=== PATIENT | female | born 2000 | race Caucasian/White ===

== ENCOUNTER 2024-03-06 07:48 | Outpatient (AMB) | payer OTHER, SELFPAY ==
--- NOTE | 2024-03-06 08:01 | MHC.OFFVIS ---
Vital Signs 03/06/24 08:14 Height 5 ft 4 in Weight 162 lb 11.218 oz BMI 27.9 BP 118/72 Blood Pressure Location Rt brachial Position Sitting Pulse 86 Pulse Source Pulse Oximeter Pulse Oximetry (%) 98 Oxygen Delivery Method Room Air Intake Visit Reasons: Gastroesophageal reflux disease (GERD) Intake Note: Navdeep presents in office today for a scheduled initial assessment. CC; Pt reports that they have been having intermittent sx over the course of the last few years. However, they have noticed their sx have become more prevalent over the course of the last 2 years. Pt notices that they do experience worsening sx with certain trigger foods (acidic). Pt reports that she typically has the primary sx of esophageal burning and discomfort, associated with intermittent chest pain. Pt also believes they are lactose intolerant but they have never had the testing to confirm this. 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 Patient is here today to discuss her symptoms that have been going on for 4 years or so. Patient reports that as far she remember on a day of her birthday when she turned 20 she had half of coffee and she 1st noticed burning and severe reflux. Patient states that it felt burning sensation then after almost anything that she eats. Patient states that worse with lactose products like ice cream or cheese. Patient denies any nausea or vomiting, however lately patient reports nausea about 4 hours after her dinner. Denies any vomiting. Patient reports occasional dyspepsia without dysphagia or odynophagia. Patient states that she purchased cyhw-[id number] omeprazole for week or so and patient reports that the help. Her symptoms went away, however currently she is starting to experience same symptoms again. Patient does admit that she has stressful job. 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 Patient reports that she moves her bowels every day. Her bowels are normal and she is feeling like she is emptying completely. Patient denies melena, hematochezia. PCP checked labs. H pylori was negative. [facility] Medical History (Updated 03/06/24 @ 08:13 by SHARIF Cabrales) Congenital blocked tear duct Surgical History (Updated 03/06/24 @ 08:13 by SHARIF Cabrales) [place] teeth removed History of removal of pigmented skin lesion Social History Alcohol intake: current Comment: 1-2 x per month Patient Tobacco Use Status: Never used Tobacco Review of Systems Const Denies weight gain and Denies weight loss ENT Reports no additional complaints, Denies dysphagia and Denies odynophagia Card Reports no additional complaints Resp Reports no additional complaints GI Reports abdominal pain (Epigastric), Denies belching, Denies melena, Reports bloating, Denies change in bowel habits, Denies dysphagia, Denies excessive flatus, Denies dyspepsia, Reports heartburn, Denies diarrhea, Denies loose stools, Reports nausea (Occasional), Denies odynophagia and Denies vomiting Reports no additional complaints Musc Reports no additional complaints Neuro Reports no additional complaints Psych Reports no additional complaints Endo Reports no additional complaints Physical Exam Const General: healthy appearing, no acute distress and well developed Nutritional Appearance: well nourished Orientation/consciousness: patient oriented x3 Resp Effort & Inspection: normal respiratory effort, able to speak in complete sentences, no tracheal deviation and symmetric chest movement Auscultation: clear to auscultation bilaterally Cardio Rate: regular rate GI Inspection: Yes normal to inspection and No distended Palpation (GI): Soft to palpation, not firm, nontender and No hepatosplenomegaly present Auscultation: normal bowel sounds General: Yes no CVA tenderness Back/Spine/Pelvis Back: no CVA tenderness Skin General skin exam: elasticity normal, turgor normal and dry skin Neuro General: patient oriented x3 Psych Appearance: grossly normal Mental Status: mental status grossly normal Assessment & Plan Assessment & Plan (1) Postprandial epigastric pain: Code(s): R10.13 - Epigastric pain (2) GERD (gastroesophageal reflux disease): Code(s): K21.9 - Gastro-esophageal reflux disease without esophagitis Qualifiers: Esophagitis presence: esophagitis presence not specified Qualified Code(s): K21.9 - Gastro-esophageal reflux disease without esophagitis (3) Postprandial abdominal bloating: Code(s): R14.0 - Abdominal distension (gaseous) Plan Patient will avoid dietary triggers and late night snacking. Discuss low FODMAP diet. List of food recommended as well as list of food to avoid given to patient. Patient will start taking pantoprazole 20 mg every morning. Staying upright for minimum 3 hours after meals discussed with patient. Will check transglutaminase to rule out celiac, vitamin B12, folate and vitamin-D level. Patient will be sent for upper GI series with barium swallow. Please schedule upper endoscopy for patient. Message sent to surgical schedulers. I will see patient after the procedure, sooner on as needed basis. Patient is agreeable to plan of care and verbalizes understanding of instructions. She was given the opportunity to ask questions and all questions answered. Thank you for allowing me to participate in her care Orders: Orders Transglutaminase IgA Today R10.9 - Unspecified abdominal pain Vitamin B12 and Folate Today R19.7 - Diarrhea, unspecified Vitamin D 25-OH (D2 and D3) Today E55.9 - Vitamin D deficiency, unspecified Transglutaminase Ab IgG Today R10.9 - Unspecified abdominal pain FL upper GI w Ba Swallow Today R13.10 - Dysphagia, unspecified Medications: New pantoprazole 20 mg PO DAILY 90 tabs 1RF Coding Level of Care Code New Pt Level 3 (60185) Diagnoses Postprandial epigastric pain R10.13 Gastroesophageal reflux disease, unspecified whether esophagitis present K21.9 Esophagitis presence: esophagitis presence not specified Postprandial abdominal bloating R14.0 Time Spent (min) 40 Comment 30 minutes spent with patient and additional 10 minutes spent reviewing her records
[2024-03-06 08:14] VITALS: BP 118/72; PULSE 86; O2SAT 98; BMI 27.9
== END 2024-03-06 09:31 | disposition home or self-care (01) ==
PROVIDERS: PCP Internal Medicine; Visit Provider Nurse Practitioner Family
DX: R10.13 Epigastric pain (principal); K21.9 Gastro-esophageal reflux disease without esophagitis; R14.0 Abdominal distension (gaseous)
CPT/HCPCS: 99203

== ENCOUNTER 2024-03-06 07:48 | Outpatient (REF) | payer OTHER, SELFPAY ==
[2024-03-06 12:51] LABS: Vitamin B12 282 pg/mL (200-900)
[2024-03-07 20:13] LABS: Transglutaminase Ab IgG <1.0 U/mL; Transglutaminase IgA <1.0 U/mL
[2024-03-10 12:58] LABS: Vitamin D 25-OH, D2 <4 ng/mL; Vitamin D 25-OH, D3 27 ng/mL; Vitamin D 25-OH, Total 27 ng/mL (30-100)
== END 2024-03-06 07:49 | disposition home or self-care (01) ==
LOC: HO.LAB 07:48
PROVIDERS: PCP Internal Medicine; Visit Provider Nurse Practitioner Family
DX: R10.9 Unspecified abdominal pain (principal); R19.7 Diarrhea, unspecified; E55.9 Vitamin D deficiency, unspecified
CPT/HCPCS: 36415; 82306; 82607; 82746; 86364

== ENCOUNTER 2024-05-17 09:09 | Outpatient (REF) | payer OTHER, SELFPAY ==
--- NOTE | ~2024-05-17 | FL_ITS ---
EXAMINATION: XR FLUOROSCOPY UPPER GI WITH AIR CLINICAL INFORMATION: Reflux. COMPARISON: None TECHNIQUE: Fluoroscopic air contrast upper GI examination was performed utilizing standard techniques with thin and thick barium and effervescent granules. Numerous spot images were obtained. FINDINGS: Dual and single contrast images of the esophagus demonstrate normal caliber, contour, and mucosal pattern. There is mild cricopharyngeal achalasia present. No evidence of stricture, mass, or ulcerations identified. Esophageal peristalsis was normal. A small type I hiatal hernia is present. Gastroesophageal reflux observed up to the midesophagus. Dual contrast and single contrast images of the stomach demonstrated a normal contour. The areae gastrica have a thickened appearance, suggestive of gastritis. There are multiple tiny foci of contrast pooling in the body of the stomach that likely represents small mucosal erosions. Contrast freely passed into the gastric antrum and duodenal bulb without delay. Single and air-contrast images of the duodenal bulb demonstrate no abnormality. The duodenal sweep has a normal appearance, course, and mucosal fold appearance. FLUOROSCOPY TIME: 3 minutes 34 seconds Number of Spot Images: 8 Number of Cine: 12 DOSE AREA PRODUCT: 1561 uGy-m2 (microgray-meter squared) FL/FL upper GI w air w Ba Swallow IMPRESSION: 1. Mild cricopharyngeal achalasia. 2. Small type I hiatal hernia with moderate gastroesophageal reflux. 3. Thickened appearance of the areae gastrica. In addition there are multiple tiny foci of contrast pooling in the body the stomach. These findings are suggestive of erosive gastritis. Recommend correlation with EGD. This procedure was performed by Fransisco Evans PA-C, and supervised by Dr. Cullen Electronically signed by: Guevara Cullen MD 05/17/2024 03:23 PM EDT
== END 2024-05-17 09:10 | disposition home or self-care (01) ==
LOC: HO.XRAY 09:09
PROVIDERS: PCP Internal Medicine; Visit Provider Nurse Practitioner Family
DX: R13.10 Dysphagia, unspecified (principal)
CPT/HCPCS: 74246

== ENCOUNTER → 2024-05-17 09:12 | Outpatient (BNV) | payer OTHER, SELFPAY | PROVIDERS: PCP Internal Medicine; Visit Provider Physician Assistant Surgical | DX: K21.9 Gastro-esophageal reflux disease without esophagitis (principal) | CPT/HCPCS: 74246 ==

== ENCOUNTER 2024-06-27 09:23 | Outpatient (AMB) | payer OTHER, SELFPAY ==
[2024-06-27 09:26] VITALS: BP 124/84; PULSE 68; O2SAT 96; BMI 26.5
--- NOTE | 2024-06-27 09:26 | A.OFFVIS_ITS ---
Vital Signs 06/27/24 09:26 Height 5 ft 4 in Weight 154 lb 5.177 oz BMI 26.5 BP 124/84 Blood Pressure Location Rt brachial Position Sitting Pulse 68 Pulse Source Pulse Oximeter Pulse Oximetry (%) 96 Oxygen Delivery Method Room Air Intake Visit Reasons: Review imaging, discuss EGD Intake Note: Navdeep presents in office today for a scheduled FUV (~3 mos) CC; Any changes or new sx since last visit? Pt states that they stopped taking the pantoprazole post 8 week trial in order to make sure that their insurance will cover the EGD. Pt does report however that it had been working, but causing moderate to servere GI upset / Abd pain. Pt also reports that their reflux has been under fair control since stopping pantoprazole with just diet and lifestyle changes. Imaging performed since last visit. Administrative Judge Required: No Allergies No Known Allergies Allergy (Verified 06/27/24 09:26) HPI HPI Review imaging, discuss EGD: Details: LAST VISIT: Postprandial epigastric pain GERD (gastroesophageal reflux disease) Postprandial abdominal bloating Plan Patient will avoid dietary triggers and late night snacking. Discuss low FODMAP diet. List of food recommended as well as list of food to avoid given to patient. Patient will start taking pantoprazole 20 mg every morning. Staying upright for minimum 3 hours after meals discussed with patient. Will check transglutaminase to rule out celiac, vitamin B12, folate and vitamin-D level. Patient will be sent for upper GI series with barium swallow. Please schedule up per endoscopy for patient. Message sent to surgical schedulers. I will see patient after the procedure, sooner on as needed basis. Patient is agreeable to plan of care and verbalizes understanding of instructions. She was given the opportunity to ask questions and all questions answered. ? Thank you for allowing me to participate in her care Orders Orders Transglutaminase IgA Today R10.9 Vitamin B12 and Folate Today R19.7 Vitamin D 25-OH (D2 and D3) Today E55.9 Transglutaminase Ab IgG Today R10.9 FL upper GI w Ba Swallow Today R13.10 Medications New pantoprazole 20 mg PO DAILY 90 tabs 1RF TODAY'S VISIT Patient is here today for follow-up and to discuss upper GI with barium swallow and her lab results. Patient is currently not taking pantoprazole, took it for 8 weeks and then was told by her insurance that she has to stop it in order to have a endoscopy paid for. Abnormal upper GI with barium swallow. Possible gastritis know that and recommendation was made for EGD to confirm the diagnosis. Currently patient is trying to avoid certain dietary triggers. She is trying to eat better, avoiding eating late at night. Still continues to have occasional symptoms. Epigastric pain postprandially sometimes dyspepsia without dysphagia or odynophagia. Lab work was reviewed patient couple months ago and low vitamin-D was replaced with supplement. Patient reports that she has been taking it daily. Patient denies any other GI concerning symptoms. Denies melena, hematochezia, unintentional weight loss or ribbon like stools. Patient reports that she is moving her bowels without any issues. [facility] Medical History Congenital blocked tear duct Surgical History [place] teeth removed History of removal of pigmented skin lesion Social History Alcohol intake: current Comment: 1-2 x per month Patient Tobacco Use Status: Never used Tobacco Review of Systems Const Denies weight gain and Denies weight loss ENT Reports no additional complaints, Denies dysphagia and Denies odynophagia Card Reports no additional complaints Resp Reports no additional complaints GI Denies abdominal pain, Denies belching, Denies melena, Denies bloating, Denies change in bowel habits, Denies dysphagia, Denies excessive flatus, Denies dyspepsia, Reports heartburn (Occasional), Denies diarrhea, Denies loose stools, Denies nausea, Denies odynophagia and Denies vomiting Musc Reports no additional complaints Neuro Reports no additional complaints Psych Reports no additional complaints Endo Reports no additional complaints Physical Exam Vital Signs: Last Vital Signs Pulse 68 06/27/24 09:26 BP 124/84 12/04/24 09:26 Pulse Ox 96 06/27/24 09:26 Oxygen Delivery Method Room Air 06/27/24 09:26 BMI result Body Mass Index 26.5 Const General: healthy appearing, no acute distress and well developed Nutritional Appearance: well nourished Orientation/consciousness: patient oriented x3 Resp Effort & Inspection: normal respiratory effort, able to speak in complete sentences, no tracheal deviation and symmetric chest movement Auscultation: clear to auscultation bilaterally Cardio Rate: regular rate GI Inspection: Yes normal to inspection and No distended Palpation (GI): Soft to palpation, not firm, nontender and No hepatosplenomegaly present Auscultation: normal bowel sounds General: Yes no CVA tenderness Back/Spine/Pelvis Back: no CVA tenderness Skin General skin exam: elasticity normal, turgor normal and dry skin Neuro General: patient oriented x3 Psych Appearance: grossly normal Mental Status: mental status grossly normal Results Reviewed Results Reviewed: UPPER GI SERIES WITH BARIUM SWALLOW IMPRESSION: 1. Mild cricopharyngeal achalasia. 2. Small type I hiatal hernia with moderate gastroesophageal reflux. 3. Thickened appearance of the areae gastrica. In addition there are multiple tiny foci of contrast pooling in the body the stomach. These findings are suggestive of erosive gastritis. Recommend correlation with EGD. Laboratory Tests 03/06/24 09:02 Vitamin B12 282 25-OH Vitamin D Total 27 L Folate 8.0 Tiss Transglutamin IgG <1.0 Tiss Transglutamin IgA <1.0 Assessment & Plan Assessment & Plan (1) Postprandial epigastric pain: Code(s): R10.13 - Epigastric pain (2) GERD (gastroesophageal reflux disease): Code(s): K21.9 - Gastro-esophageal reflux disease without esophagitis Qualifiers: Esophagitis presence: esophagitis presence not specified Qualified Code(s): K21.9 - Gastro-esophageal reflux disease without esophagitis (3) Postprandial abdominal bloating: Code(s): R14.0 - Abdominal distension (gaseous) (4) Gastritis: Code(s): K29.70 - Gastritis, unspecified, without bleeding Qualifiers: Gastritis type: unspecified gastritis Plan Possible gastritis found on upper GI series with barium swallow, patient has endoscopy scheduled in August. Currently she is not taking pantoprazole as her insurance is not covering. Patient can take Pepcid daily. Will call our office if her symptoms will continue we can increase the dose to twice a day. Discussed with patient the importance of avoiding dietary triggers and late nigh t snacking. Staying upright for minimum 3 hours after meals discussed with patient. Patient has appointment made after her procedure. She will call us if she will have any GI concerning symptoms. She is agreeable to plan of care and verbalizes understanding of instructions. She was given the opportunity to ask questions and all questions answered. Thank you for allowing me to participate in her care Medications: New famotidine (Pepcid) 20 mg PO BEDTIME 30 tabs 3RF K21.9 - Gastro-esophageal reflux disease without esophagitis Refilled cholecalciferol (vitamin D3) 50 mcg PO DAILY 90 caps 3RF R79.89 - Other specified abnormal findings of blood chemistry Coding Level of Care Code Tele Est Pt Level 4 (96884) Complex EM visit Add On G2211 Diagnoses Postprandial epigastric pain R10.13 Gastroesophageal reflux disease, unspecified whether esophagitis present K21.9 Esophagitis presence: esophagitis presence not specified Postprandial abdominal bloating R14.0 Gastritis K29.70 Gastritis type: unspecified gastritis Time Spent (min) 35 Comment 20 minutes spent with patient and additional 15 minutes spent reviewing her records
== END 2024-06-27 10:01 | disposition home or self-care (01) ==
PROVIDERS: PCP Internal Medicine; Visit Provider Nurse Practitioner Family
DX: R10.13 Epigastric pain (principal); K21.9 Gastro-esophageal reflux disease without esophagitis; R14.0 Abdominal distension (gaseous); K29.70 Gastritis, unspecified, without bleeding
CPT/HCPCS: 99214

== ENCOUNTER → 2024-06-27 09:23 | Outpatient (BNVA) | payer OTHER, SELFPAY | PROVIDERS: PCP Internal Medicine; Visit Provider Nurse Practitioner Family ==

== ENCOUNTER 2024-09-04 07:35 | Day surgery (SDC) | payer OTHER, SELFPAY ==
[2024-08-31 14:14] VITALS: BMI 26.4
--- NOTE | 2024-09-03 09:32 | P.CONAN_ITS ---
Documented by User: Amber Flor NP 09/03/24 09:32 HPI - Anesthesia Eval Consult details Narrative: 24yo F for Upper Endoscopy [facility] Past Medical History Medical History Congenital blocked tear duct Surgical History Surgical History [place] teeth removed History of removal of pigmented skin lesion Social History Social History Household Members Other:: parents and sister Are you a primary career technical education instructor to a significant other at home: No Do you presently have visiting nurse or other home services: No Alcohol intake: current Comment: 1-2 x per month Patient Tobacco Use Status: Never used Tobacco Have you been hit, kicked, punched, or otherwise hurt by someone within the past year? If so, by whom?: No Are you DNR?: No Advance Directives: No Advance Directives Information Provided: Yes Recently lost weight without trying: No Nutrition Risks: No Nutritional Risk FDLMP: i am due this weee Meds Allergies Allergy/AdvReac Type Severity Reaction Status Date / Time No Known Allergies Allergy Verified 09/04/24 08:06 Exam Height,Weight and Vital Signs: Height 5 ft 4 in Weight 69.853 kg Assessment and Plan Assessment Anesthesia Assessment: Chart Reviewed Documented by User: Barbara Cunningham MD 09/04/24 08:27 [facility] Past Medical History Medical History Congenital blocked tear duct Surgical History Surgical History [place] teeth removed History of removal of pigmented skin lesion History of Problems with Anesthesia: No Social History Social History Household Members Other:: parents and sister Are you a primary career technical education instructor to a significant other at home: No Do you presently have visiting nurse or other home services: No Alcohol intake: current Comment: 1-2 x per month Patient Tobacco Use Status: Never used Tobacco Have you been hit, kicked, punched, or otherwise hurt by someone within the past year? If so, by whom?: No Are you DNR?: No Advance Directives: No Advance Directives Information Provided: Yes Recently lost weight without trying: No Nutrition Risks: No Nutritional Risk FDLMP: i am due this weee Meds Allergies Allergy/AdvReac Type Severity Reaction Status Date / Time No Known Allergies Allergy Verified 09/04/24 08:06 Exam Airway Mallampati Class: II TM Dist: >3cm Neck ROM: Full Loose/Missing/Broken Teeth: No Heart: RRR Lungs: CTA Assessment and Plan Assessment Anesthesia Assessment: Anesthesia Plan Discussed Final Anesthetic Review History of Problems with Anesthesia: No NPO: Yes ASA Class: II Final Preanesthetic Review: Meds/Allgs Chart Reviewed, Consent Obtained/Reviewed and Anes Risks/Benef Reviewed Patient Risk: Low Procedure Risk: Intermediate Anesthetic Plan Anesthetic Plan: MAC: Disposition: Standard PACU
--- OUTSIDE RECORDS SUMMARY | 2024-09-04 07:38 | XMS_ITS | Encounter Summary ---
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 Name Role Phone Therese Maldonado SHERIFFS DETECTIVE Primary Care Provider [phone] Encounter Details Date Type Department Care Team (Late st Contact Info) Description 03/15/2011 Conversion Encounter [facility] [address] [place] [address] Social History Tobacco Use Types Packs/Day Years Used Date Smoking Tobacco: Never Assessed Comments Unknown Sex and Gender Information Value Date Recorded Sex Assigned at Not on file Legal Sex Female 6:19 PM EDT Gender Identity Not on file Sexual Orientation Not on file documented as of this encounter Plan of Treatment Not on file documented as of this encounter Visit Diagnoses Not on filedocumented in this encounter Care Teams Glue Reel Operator Relationship Specialty Start Date End Date Therese Maldonado NP [address] [place] [address] PCP - General Pediatrics 01/11/23 documented as of this encounter
[2024-09-04 07:53] VITALS: BMI 26.6
[2024-09-04] MEDS: Lactated Ringers 1,000 ML 100 ML IVCONT (07:59)
[2024-09-04 08:05] VITALS: BP 118/76; PULSE 80; RESP 18; TEMP 36.7; O2SAT 97
[2024-09-04 08:08] LABS: UPreg QC Valid YES; Urine Pregnancy NEGATIVE (NEGATIVE)
--- NOTE | 2024-09-04 08:10 | P.CONAN_ITS ---
[facility] Past Medical History Medical History Congenital blocked tear duct Surgical History Surgical History [place] teeth removed History of removal of pigmented skin lesion History of Problems with Anesthesia: No Social History Social History Household Members Other:: parents and sister Are you a primary care transition coordinator to a significant other at home: No Do you presently have visiting nurse or other home services: No Alcohol intake: current Comment: 1-2 x per month Patient Tobacco Use Status: Never used Tobacco Have you been hit, kicked, punched, or otherwise hurt by someone within the past year? If so, by whom?: No Are you DNR?: No Advance Directives: No Advance Directives Information Provided: Yes Recently lost weight without trying: No Nutrition Risks: No Nutritional Risk FDLMP: i am due this weee Meds Allergies Allergy/AdvReac Type Severity Reaction Status Date / Time No Known Allergies Allergy Verified 09/04/24 08:06 Active Medications: Current Medications Lactated Ringer's (Lr) 1,000 mls @ 100 mls/hr IVCONT .Q10H ANN-MARIE Last Admin: 09/04/24 07:59 Dose: 100 mls/hr Exam Height,Weight and Vital Signs: Height 5 ft 4 in Weight 70.307 kg Last Vital Signs Temp 98.1 F 09/04/24 08:05 Pulse 80 09/04/24 08:05 Resp 18 09/04/24 08:05 BP 118/76 09/04/24 08:05 Pulse Ox 97 09/04/24 08:05 O2 Del Method Room Air 09/04/24 08:05 Pertinent Lab Results Pertinent Lab Results: Laboratory Tests 09/04/24 07:50 Urine Test NEGATIVE Airway Mallampati Class: II TM Dist: >3cm Neck ROM: Full Loose/Missing/Broken Teeth: No Heart: RRR Lungs: CTA Assessment and Plan Assessment Anesthesia Assessment: Anesthesia Plan Discussed and Chart Reviewed Final Anesthetic Review History of Problems with Anesthesia: No NPO: Yes ASA Class: II Final Preanesthetic Review: Meds/Allgs Chart Reviewed, Consent Obtained/Reviewed and Anes Risks/Benef Reviewed Patient Risk: Low Procedure Risk: Intermediate Anesthetic Plan Anesthetic Plan: MAC: Disposition: Standard PACU
--- NOTE | 2024-09-04 08:40 | MHC.SHP ---
Pre-Procedural Eval Section A - 24 Hr Update-Section A only Date of Service: 09/04/24 Section B - Complete if H&P > 30 days Chief Complaint: Abdominal distension,epigastric pain,gerd Relevant Family History (Specify if Yes): No Relevant Social History: None Present Medications: see Short Stay Collaborative assessment Medical History: Significant History (ongenital blocked tear duct) History of Previous Operations: Relevant previous surgery/procedure and date(s) ([place] teeth removed History of removal of pigmented skin lesion) Allergies: Allergies Allergy/AdvReac Type Severity Reaction Status Date / Time No Known Allergies Allergy Verified 09/04/24 08:06 Review of Systems Sugical H&P ROS: Negative: Constitution, Cardiovascular, Respiratory, Neurological, Psychiatric, Hem-Onc, Allergic/Immunologic, Gastrointestinal, Genitourinary, Musculoskeletal, Integumentary, Endocrine and Eyes/Ears/Nose/Throat Exam Surgical H&P Exam: Normal: HEENT, Normal: Heart, Normal: Lungs, Normal: Extremities, Normal: Abdomen, Normal: Skin and Normal: Neurological Plan Diagnosis/Plan: Unchanged I have reviewed the history and physical and performed a pertinent physical examination on my patient. No changes have occurred unless specified. Time Spent With Patient Time: Total time managing care of this patient today ____ minutes.
--- NOTE | 2024-09-04 08:59 | W.PM.OPN ---
Operative Note Operative Note Date of Service: 09/04/24 Narrative: Procedure Description: EGD Indication: GERD Anesthesia: MAC FLEXIBLE TRANSORAL UPPER GASTROINTESTINAL ENDOSCOPY UPPER ENDOSCOPY Consent: Indications for the procedure and potential complications of bleeding, perforation, reaction to medications and missed diagnosis were discussed with the patient and informed consent was obtained. Instrument: Olympus GIF H 190 J mid size upper endoscope Monitoring: Vital signs and clinical assessment, continuous EKG monitoring, Pulse oximetry, Carbon Dioxide monitoring and blood pressure monitoring were done throughout the procedure. Procedure: The patient was placed in the left lateral decubitis position and pre-procedure medications were administered and a bite block was placed. The endoscope was inserted into the mouth and advanced under direct vision to the third part of duodenum. A careful inspection was made as the upper endoscope was withdrawn including a retroflexed examination of the proximal stomach; Findings and interventions are described below. Findings: Larynx:normal Esophagus: GE junction at 38 cm, diaphragm hiatus at 38 cm, mild esophagitis at GEJ, bx taken from GEJ, distal and proximal esophagus Stomach: patchy erythema with bile acid refluxate noted . Biopsies were obtained. Grade 2 flap valve on retroflexed examination of the cardia. Duodenum: Normal bulb and descending duodenum, bx taken Intervention: Biopsies as noted above, Impression/Findings: gastritis esophagitis bile acid refluxate PLAN: consider using PPI if ongoing sx, possibly adding bile acid binder or ursodiol GERD precautions
[2024-09-04 09:02] VITALS: BP 90/45; PULSE 75; RESP 18; TEMP 36.4; O2SAT 98
[2024-09-04 09:17] VITALS: BP 105/65; PULSE 75; RESP 16; TEMP 36.4; O2SAT 100
== END 2024-09-04 09:55 | disposition home or self-care (01) ==
PROVIDERS: Nurse Practitioner; PCP Internal Medicine; Visit Provider Internal Medicine Gastroenterology
PROC: 0DJ08ZZ Inspection of Upper Intestinal Tract, Via Natural or Artificial Opening Endoscopic (ICD-10-PCS; CPT 43235; principal; 2024-09-04 09:10)
DX: K29.70 Gastritis, unspecified, without bleeding (principal); K21.00 Gastro-esophageal reflux disease with esophagitis, without bleeding; R14.0 Abdominal distension (gaseous); Z79.899 Other long term (current) drug therapy
CPT/HCPCS: 43239; 81025; 88305; 88313; 88342; J2003; J2704

== ENCOUNTER → 2024-09-04 07:35 | Outpatient (BNV) | payer OTHER, SELFPAY | PROVIDERS: PCP Internal Medicine; Visit Provider Internal Medicine Gastroenterology | DX: K21.00 Gastro-esophageal reflux disease with esophagitis, without bleeding (principal); K29.70 Gastritis, unspecified, without bleeding | CPT/HCPCS: 43239 ==

== ENCOUNTER 2024-09-19 09:29 | Outpatient (AMB) | payer OTHER, SELFPAY ==
--- NOTE | 2024-09-19 09:31 | A.OFFVIS_ITS ---
Vital Signs 09/19/24 09:33 Height 5 ft 4 in Weight 152 lb 8.958 oz BMI 26.2 BP 114/64 Blood Pressure Location Rt brachial Position Sitting Pulse 72 Pulse Source Pulse Oximeter Pulse Oximetry (%) 97 Oxygen Delivery Method Room Air Intake Visit Reasons: s/p + 2 mos FUV. Intake Note: ESTABLISHED PATIENT for mgmt of epigastric pain, GERD. CC; Pt denies any GI concerns at this time. Sx are well controlled. 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 Currently she is not taking pantoprazole as her insurance is not covering. Patient can take Pepcid daily. Will call our office if her symptoms will continue we can increase the dose to twice a day. Discussed with patient the importance of avoiding dietary triggers and late night snacking. Staying upright for minimum 3 hours after meals discussed with patient. Patient has appointment made after her procedure. She will call us if she will have any GI concerning symptoms. She is agreeable to plan of care and verbalizes understanding of instructions. She was given the opportunity to ask questions and all questions answered. ? Thank you for allowing me to participate in her care Medications New famotidine (Pepcid) 20 mg PO BEDTIME 30 tabs 3RF K21.9 Refilled cholecalciferol (vitamin D3) 50 mcg PO DAILY 90 caps 3RF R79.89 UPPER ENDOSCOPY Findings: Larynx:normal Esophagus: GE junction at 38 cm, diaphragm hiatus at 38 cm, mild esophagitis at GEJ, bx taken from GEJ, distal and proximal esophagus Stomach: patchy erythema with bile acid refluxate noted . Biopsies were obtained. Grade 2 flap valve on retroflexed examination of the cardia. Duodenum: Normal bulb and descending duodenum, bx taken Intervention: Biopsies as noted above, Impression/Findings: gastritis esophagitis bile acid refluxate PLAN: consider using PPI if ongoing sx, possibly adding bile acid binder or ursodiol GERD precautions PATHOLOGY RESULTS Diagnosis A. Duodenum, biopsy: Duodenal mucosa within normal limits. B. Stomach, biopsy: Antral-type and oxyntic mucosa with mild chronic inactive inflammation; no Helicobacter organisms seen. C. GE junction, biopsy: - Cardiac-type mucosa with moderate chronic inactive inflammation and focal intestinal metaplasia; negative for dysplasia. - No squamous epithelium identified. D. Esophagus, distal, biopsy: Squamous epithelium within normal limits; no inflammation seen. E. Esophagus, proximal, biopsy: Squamous epithelium within normal limits; no inflammation seen. Comment: The findings in part C are consistent with Drew esophagus if sampled from the tubular esophagus. TODAY'S VISIT: Patient is here today for follow-up and to discuss upper endoscopy results. Patient denies any ill effects from anesthesia or procedure itself. Patient reports that she is feeling well after. Denies dyspepsia, dysphagia or odynophagia. 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 Moderate chronic inactive inflammation with focal intestinal metaplasia without dysplasia seen. Patient will need to be put on PPI. Patient denies any family history of gastric or esophageal cancer. Patient denies any GI concerning symptoms today. 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 Surgical History [place] teeth removed History of removal of pigmented skin lesion Social History Household Members Other:: parents and sister Are you a primary nurse healthcare manager to a significant other at home: No Do you presently have visiting nurse or other home services: No Alcohol intake: current Comment: 1-2 x per month Patient Tobacco Use Status: Never used Tobacco Review of Systems Const Denies weight gain and Denies weight loss ENT Reports no additional complaints, Denies dysphagia and Denies odynophagia Card Reports no additional complaints Resp Reports no additional complaints GI Denies abdominal pain, Denies belching, Denies melena, Denies bloating, Denies change in bowel habits, Denies dysphagia, Denies excessive flatus, Denies dyspepsia, Denies heartburn, Denies diarrhea, Denies loose stools, Denies nausea, Denies odynophagia and Denies vomiting Reports no additional complaints Musc Reports no additional complaints Neuro Reports no additional complaints Psych Reports no additional complaints Endo Reports no additional complaints Physical Exam Vital Signs: Last Vital Signs Pulse 72 09/19/24 09:33 BP 114/64 09/19/24 09:33 Pulse Ox 97 09/19/24 09:33 Oxygen Delivery Method Room Air 09/19/24 09:33 BMI result Body Mass Index 26.2 Const General: healthy appearing, no acute distress and well developed Nutritional Appearance: well nourished Orientation/consciousness: patient oriented x3 Resp Effort & Inspection: normal respiratory effort, able to speak in complete sentences, no tracheal deviation and symmetric chest movement Auscultation: clear to auscultation bilaterally Cardio Rate: regular rate GI Inspection: Yes normal to inspection and No distended Palpation (GI): Soft to palpation, not firm, nontender and No hepatosplenomegaly present Auscultation: normal bowel sounds General: Yes no CVA tenderness Back/Spine/Pelvis Back: no CVA tenderness Skin General skin exam: elasticity normal, turgor normal and dry skin Neuro General: patient oriented x3 Psych Appearance: grossly normal Mental Status: mental status grossly normal Assessment & Plan Assessment & Plan (1) 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: Code(s): K22.70 - 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 Category: Medical (2) Postprandial epigastric pain: Code(s): R10.13 - Epigastric pain (3) GERD (gastroesophageal reflux disease): Code(s): K21.9 - Gastro-esophageal reflux disease without esophagitis Qualifiers: Esophagitis presence: without esophagitis Qualified Code(s): K21.9 - Gastro-esophageal reflux disease without esophagitis (4) Postprandial abdominal bloating: Code(s): R14.0 - Abdominal distension (gaseous) (5) Gastritis: Code(s): K29.70 - Gastritis, unspecified, without bleeding Qualifiers: Gastritis type: unspecified gastritis Chronicity: chronic Gastritis bleeding: without bleeding Qualified Code(s): K29.50 - Unspecified chronic gastritis without bleeding Plan Patient will stop famotidine and we will start her on PPI. Patient will take pantoprazole 40 mg daily. Avoid dietary triggers and late night snacking. Staying upright for minimum 3 hours after meals discussed with patient. Patient will return in 3 months so we can discuss trying to taper maybe to 20 mg daily. Patient will call our office if she will GI concerning symptoms. She is agreeable to current plan of care and verbalizes understanding of instructions. She was given the opportunity to ask questions and all questions answered. 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
[2024-09-19 09:33] VITALS: BP 114/64; PULSE 72; O2SAT 97; BMI 26.2
== END 2024-09-19 09:53 | disposition home or self-care (01) ==
PROVIDERS: PCP Internal Medicine; Visit Provider Nurse Practitioner Family
DX: K22.70 Barrett's esophagus without dysplasia (principal); R10.13 Epigastric pain; K21.9 Gastro-esophageal reflux disease without esophagitis; R14.0 Abdominal distension (gaseous); K29.50 Unspecified chronic gastritis without bleeding
CPT/HCPCS: 99214

== ENCOUNTER → 2024-09-19 09:29 | Outpatient (BNVA) | payer OTHER, SELFPAY | PROVIDERS: PCP Internal Medicine; Visit Provider Nurse Practitioner Family ==

== ENCOUNTER 2025-03-05 08:48 | Outpatient (AMB) | payer OTHER, SELFPAY ==
--- NOTE | 2025-03-05 08:50 | MHC.OFFVIS ---
Vital Signs 03/05/25 08:52 Height 5 ft 4 in Weight 167 lb BMI 28.7 BP 126/80 Blood Pressure Location Rt brachial Position Sitting Pulse 80 Pulse Source Pulse Oximeter Pulse Oximetry (%) 99 Oxygen Delivery Method Room Air Intake Visit Reasons: 3 mo f/u r/s 12/11/24 Intake Note: Est pt for mgmt of GERD + Drew's. CC; Pt denies any GI sx or concerns at this time. Pt does report having positive impact from the Rx from last visit. 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 Patient will take pantoprazole 40 mg daily. Avoid dietary triggers and late night snacking. Staying upright for minimum 3 hours after meals discussed with patient. Patient will return in 3 months so we can discuss trying to taper maybe to 20 mg daily. Patient will call our office if she will GI concerning symptoms. She is agreeable to current plan of care and verbalizes understanding of instructions. She was given the opportunity to ask questions and all questions answered. ? Thank you for allowing me to participate in her care New pantoprazole take one tablet half an hour before breakfast 40 mg PO DAILY 90 tabs 1RF K21.9 Discontinued famotidine (Pepcid) Discontinued Reason: Doctor's Order 20 mg PO BEDTIME 30 tabs 3RF K21.9 TODAY'S VISIT Patient is here today for follow-up. Patient reports that she has been doing well since last visit. Patient is taking omeprazole daily. Her symptoms of acid reflux are suppressed. Patient denies dyspepsia, dysphagia or odynophagia. Patient is able to tolerate almost any food that she eats. Patient is trying to avoid dietary triggers as much as possible. Patient reports family history of Drew's. Patient's father was diagnosed with Drew's as well. Patient denies any nausea or vomiting. Denies any melena, hematochezia, unintentional weight loss or ribbon like stools. Patient denies any GI concerning symptoms today. 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 Surgical History [place] teeth removed History of removal of pigmented skin lesion Social History Household Members Other:: parents and sister Are you a primary animal care supervisor to a significant other at home: No Do you presently have visiting nurse or other home services: No Alcohol intake: current Comment: 1-2 x per month Patient Tobacco Use Status: Never used Tobacco Review of Systems Const Denies weight gain and Denies weight loss ENT Reports no additional complaints, Denies dysphagia and Denies odynophagia Card Reports no additional complaints Resp Reports no additional complaints GI Denies abdominal pain, Denies belching, Denies melena, Denies bloating, Denies change in bowel habits, Denies dysphagia, Denies excessive flatus, Denies dyspepsia, Denies heartburn, Denies diarrhea, Denies loose stools, Denies nausea, Denies odynophagia and Denies vomiting Reports no additional complaints Musc Reports no additional complaints Neuro Reports no additional complaints Psych Reports no additional complaints Endo Reports no additional complaints Physical Exam Vital Signs: Last Vital Signs Pulse 80 03/05/25 08:52 BP 126/80 03/05/25 08:52 Pulse Ox 99 03/05/25 08:52 Oxygen Delivery Method Room Air 03/05/25 08:52 BMI result Body Mass Index 28.7 Const General: healthy appearing, no acute distress and well developed Nutritional Appearance: well nourished Orientation/consciousness: patient oriented x3 Resp Effort & Inspection: normal respiratory effort, able to speak in complete sentences, no tracheal deviation and symmetric chest movement Auscultation: clear to auscultation bilaterally Cardio Rate: regular rate GI Inspection: Yes normal to inspection and No distended Palpation (GI): Soft to palpation, not firm, nontender and No hepatosplenomegaly present Auscultation: normal bowel sounds General: Yes no CVA tenderness Back/Spine/Pelvis Back: no CVA tenderness Skin General skin exam: elasticity normal, turgor normal and dry skin Neuro General: patient oriented x3 Psych Appearance: grossly normal Mental Status: mental status grossly normal Assessment & Plan Assessment & Plan (1) 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: Code(s): K22.70 - 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 Category: Medical (2) Postprandial epigastric pain: Code(s): R10.13 - Epigastric pain (3) Gastroesophageal reflux disease: Code(s): K21.9 - Gastro-esophageal reflux disease without esophagitis Qualifiers: Esophagitis presence: without esophagitis Qualified Code(s): K21.9 - Gastro-esophageal reflux disease without esophagitis (4) Postprandial abdominal bloating: Code(s): R14.0 - Abdominal distension (gaseous) (5) Gastritis: Code(s): K29.70 - Gastritis, unspecified, without bleeding Qualifiers: Gastritis type: unspecified gastritis Chronicity: chronic Gastritis bleeding: without bleeding Qualified Code(s): K29.50 - Unspecified chronic gastritis without bleeding Plan Patient will continue omeprazole daily. Avoid dietary triggers in late night snacking. Staying upright for minimum 3 hours after meals discussed with patient. Is still patient will follow-up in 6 months, sooner on as needed basis. She is agreeable to this plan and verbalizes understanding of instructions. She was given the opportunity to ask questions and all questions answered. 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
[2025-03-05 08:52] VITALS: BP 126/80; PULSE 80; O2SAT 99; BMI 28.7
--- OUTSIDE RECORDS SUMMARY | 2025-03-05 09:07 | XMS_ITS | Clinical Summary ---
Author Organization [facility] Address [address] [place] [id number] Phone Care Team Providers Care Advertising Associate Name Role Phone Therese Maldonado NP Primary Care Provider [phone] Allergies No known active allergies Medications hydrocortisone 2.5 % creamIndication s:Rash Apply topically 2 (two) times a day as needed for rash. 20 g 1 Active Additional Information Patient not taking.Reported on 08/12/2022 Active Problems Problem Noted Date Diagnosed Date Encounter for surveillance of injectable contrac eptive 12/01/2022 Multiple atypical nevi 08/10/2021 Other chronic sinusitis 11/02/2016 Overview (05/11/2021): Chronic sinusitis, other (473.8) Onset: 11/02/2016 Added by: Thong Dye Other acne 06/15/2016 Overview (05/11/2021): Acne (706.1) Onset: 06/15/2016 Added by: Nathalia Motley Resolved Problems Problem Noted Date Diagnosed Date Resolved Date Urinary frequency 06/01/2016 08/10/2021 Overview (05/11/2021): Urinary frequency (788.41) Onset: 06/01/2016 Added by: Yanet Diaz Extrinsic asthma 04/04/2012 08/10/2021 Overview (05/11/2021): Asthma (493.00) Onset: 04/04/2012 Added by: Nathalia Motley Low back pain 10/11/2011 08/10/2021 Overview (05/11/2021): Low back pain (724.2) Onset: 10/11/2011 Added by: Alana Issa Immunizations Immunization Administration Dates Next Due DTaP 5 02/03/2004, 1,1999,05/25,1999 HPV, Quadrivalent 04/12/2013,05/17/2011,03/15/20 11 Hep A, ped/adol 06/21/2017,04/15/2014 Hep B, ped/adol 04/21/2000,1999,1999 Hib (PRP-T) 04/21/2000, 0,1999,03/24 IPV 02/03/2004, 1,1999,03/24 Influenza, injectable, quadrivalent 07/31/2019 Influenza, injectable, quadr ivalent, preservative free 06/29/2018,06/21/2017,06/15/2016,05/15,04/15/2014 Influenza, injectable, trivalent 04/12/2013,03/25,03/15/2011 Influenza, injectable, triva lent, preservative free 05/17/2011 MMR 02/03/2004,01/19/2000 Meningococcal Conj (Menactra) MCV4P 05/15/2015,0 01/28/2010 Pneumococcal Conjugate 04/21/2000 Tdap 08/05/2020,01/28/2010 Varicella 03/15/2011,01/19/2000 Family History Medical History Relation Name Comments No Known Problems Father Thong No Known Problems Maternal Grandfather No Known Problems Maternal Grandmother No Known Problems Mother Rose No Known Problems Paternal Grandfather No Known Problems Paternal Grandmother No Known Problems Sister Sarai Relation Name Status Comments Father Thong Alive Maternal Grandfather Maternal Grandmother Mother Rose Alive Paternal Grandfather Paternal Grandmother Sister Sarai Alive Social History Tobacco Use Types Packs/Day Years Used Date Smoking Tobacco: Never Smokeless Tobacco: Never Comments:Never Smoker Alcohol Use Standard Drinks/Week Comments Never 0 (1 standard drink = 0.6 oz pur e alcohol) Hunger/Food Answer Date Recorded In the last 12 months, did y ou or your family ever eat less than you felt you should because there wasn't enough money for food? No 08/09/2022 Stable Housing Answer Date Recorded Are you worried that in the next 2 months you may not have stable housing? No 08/09/2022 Transportation Concerns Answer Date Rec orded In the last 12 months, have you or your family ever had to go without healthcare because you didn't have a way to get there? No 08/09/2022 Hazards in Home Answer Date Recorded Think about the place you li ve. Do you have problems with any of the following? Pests (mice or roaches), mold, no/not working smoke detectors, water leaks, no window guards. No 2022 Financing Utilities Answer Date Recorde d In the last 12 months, has t he electric, gas, oil, or water company threatened to shut off your services in your home? No 08/09/2022 Safety at Home Answer Date Recorded Are you or your family worried about feeling saf e in your home? No 08/09/2022 Outside Support Answer Date Recorded Do you feel that you need mo re support from other people or programs to help you care for yourself or your family? No 08/09/2022 Understanding Health Concerns Answer Da te Recorded Do you need help understandi ng your or your child's healthcare needs (diagnosis, medications, plan, etc.)? No 08/09/2022 Financing Health Concerns Answer Date R ecorded In the last 12 months, was t here a time when your child needed to see a doctor or get medications or supplies but could not because of cost? No 08/09/2022 Missing School or Work Answer Date Lior rded Did you or your child miss s chool or work because of a health problem that could have been avoided? No 08/09/2022 Comments No Sex and Gender Information Value Date Recorded Sex Assigned at Not on file Legal Sex Female 6:19 PM EDT Gender Identity Not on file Sexual Orientation Not on file Last Filed Vital Signs Vital Sign Reading Time Taken Comments Blood Pressure 122/78 08/12/2022 10:31 AM EST Pulse 112 08/12/2022 10:31 AM EST Temperature 37.1 C (98.7 F) 12/01/2022 1:45 PM EDT Respiratory Rate - - Oxygen Saturation - - Inhaled Oxygen Concentration - - Weight 71.6 kg (157 lb 12.8 oz) 023 10:31 AM EST Height 164 cm (5' 4.57 ) 08/12/2022 10: 31 AM EST Body Mass Index 26.61 08/12/2022 10:31 AM EST Plan of Treatment Health Maintenance Due Date Last Done Comments COVID-19 Vaccine ( season) 2024 06/02/2021, 11/14/2020 Influenza Vaccines (#1) 2025 05/02/20, 05/18/2021, 05/02/2020, Additional history exists DTaP,Tdap,and Td Vaccines (8 - Td or Tdap) 08/05/2030 08/05/2020, 01/28/2010, 02/03/2004, Additional history exists HIB Vaccines Completed 04/21/2000, 01/2000, 1999, Additional history exists Hepatitis B Vaccines Completed 04/21/2000, 1999, 1999 Pneumococcal Vaccine Aged Out 04/21/2000 No long er eligible based on patient's age to complete this topic IPV Vaccines Completed 02/03/2004, 07/25, 1999, Additional history exists MMR Vaccines Completed 02/03/2004, 01/19/2000 Varicella Vaccines Completed 03/15/2011, 01/19/2000 HPV Vaccines Completed 04/12/2013, 04/25, 03/15/2011 Meningococcal Vaccine Completed 05/15/2015, 010 Hepatitis A Vaccines Completed 06/21/2017, 04/15/20 14 Men B Vaccine Aged Out No longer elig ible based on patient's age to complete this topic Procedures * Due to [place] state law, this organization might not be sharing sensitive test results. Procedure Name Priority Date/Time Associated Diagnosis Comments CHLAMYDIA AND GONORRHEA, AMPLIFIED Routine 08/12/2022 11:00 AM EST Encounter for screening examination for sexually transmitted disease from Last 3 Months or Most Recently Relevant to Health Maintenance Results * Due to [place] state law, this organization might not be sharing sensitive test results. * Chlamydia and Gonorrhoea, Amplified (Urine) (08/12/2022 11:00 AM EST) Chlamydia Trachomatis, DNA Probe NEGATIVE (NEG) [facility] Comment: No Chlamydia Trachomatis RNA detected in this patient's sample (REFERENCE RANGE/NORMAL VALUE: NOT DETECTED) Note: This test uses rangeland management specialist- mediated amplification method to detect rRNA from C. Trachomatis URINE GC AMP PROBE NEGATIVE (NEG) [facility] Comment: No Neisseria Gonorrhoeae RNA detected in this patient's sample (REFERENCE RANGE/NORMAL VALUE: NOT DETECTED) NOTE: This test uses rangeland management specialist-mediated amplification method to detect rRNA from N.Gonorrhoeae. A negative result does not preclude infection. In the case of a negative urine result, testing of an endocervical(female) or urethral (male) specimen is recommended if there is high clinical suspicion of infection. Due to very high sensitivity of Nucleic Acid Amplification Test, false positive results may occur. Therefore, specimen handling is extremely important. In patients in whom the disease is unlikely, additional sample for testing should be considered after an initial positive result. The performance characteristics of this test have not been evaluated in children. The Aptima Combo2 assay is not intended for the evaluation of suspected sexual abuse or for other medico-legal indications. The ordering provider should assess if the patient had consensual sex without risk of sexual abuse. Consult the [facility] if needed. Contact phone number . Therapeutic failure or success cannot be determined with the Aptima Combo2 assay since nucleic acid may persist following appropriate antimicrobial therapy. The Centers for Disease Control and Prevention (CDC) recommends confirmatory retesting using culture or a different nucleic acid amplification test when positive results occur, if indicated. Testing performed or reported by [facility], a Service of [facility], [address] [place] [address] Andreas Downey MD, Vegetable Loader [facility]# [id number] Urine (Urine, Random (not clean void)) 08/12/2022 11:00 AM EST 08/12/2022 11:40 PM EST us Nathalia Motley MD LAB MICROBIOLOGY - GENERAL ORDER ESTRELLA Final Result AMALIA from Last 3 Months or Most Recently Relevant to Health Maintenance Insurance [employer] Care Teams Advertising Associate Relationship Specialty Start Date End Date Therese Maldonado NP [facility] [place] [id number] PCP - General Pediatrics 01/11/23
== END 2025-03-05 09:03 | disposition home or self-care (01) ==
PROVIDERS: PCP Internal Medicine; Visit Provider Nurse Practitioner Family
DX: K22.70 Barrett's esophagus without dysplasia (principal); R10.13 Epigastric pain; K21.9 Gastro-esophageal reflux disease without esophagitis; R14.0 Abdominal distension (gaseous); K29.50 Unspecified chronic gastritis without bleeding
CPT/HCPCS: 99213